=== PATIENT | female | born 1975 | race Caucasian/White ===

== ENCOUNTER 2018-10-07 14:00 | Inpatient (IN) | payer OTHER ==
[~2018-10-07] VITALS: Ht 162.6 cm; Wt 64.4 kg
[~2018-10-07 14:00] MED LIST: PNEU16DI2
[2018-10-11] MEDS ORDERED: PRENATAL TABLE1 EAC1 PO (22:52)
== END 2018-10-21 15:06 | DRG 807 ==
LOC: OB/GYN 10-19 14:25 → LDR 10-19 14:25 → OB/GYN 10-19 16:23
PROVIDERS: ADMIT Specialist
PROC: 10E0XZZ Delivery of Products of Conception, External Approach (ICD-10-PCS; principal; 2018-10-19)
PROC: 0HQ9XZZ Repair Perineum Skin, External Approach (ICD-10-PCS; 2018-10-19)
PROC: 4A1HXCZ Monitoring of Products of Conception, Cardiac Rate, External Approach (ICD-10-PCS; 2018-10-19)
DX: O70.0 First degree perineal laceration during delivery (principal); Z37.0 Single live birth; Z3A.38 38 weeks gestation of pregnancy

== ENCOUNTER 2018-10-11 19:59 | Outpatient (CLI) | payer OTHER ==
[2018-10-11] MEDS ORDERED: PRENATAL TABLE1 EAC1 PO (22:52)
== END 2018-10-12 15:38 | disposition home or self-care (01) ==
LOC: OBS/DEL 19:59
DX: O26.893 Other specified pregnancy related conditions, third trimester (principal); N89.8 Other specified noninflammatory disorders of vagina; Z34.83 Encounter for supervision of other normal pregnancy, third trimester

== ENCOUNTER 2018-10-16 03:50 | Outpatient (CLI) | payer OTHER ==
[~2018-10-16 03:50] MED LIST changes: +PRENATAL TABLE1 EAC1 PO
== END 2018-10-16 17:35 | disposition home or self-care (01) ==
LOC: OBS/DEL 03:50
DX: O26.893 Other specified pregnancy related conditions, third trimester (principal); N89.8 Other specified noninflammatory disorders of vagina; Z34.83 Encounter for supervision of other normal pregnancy, third trimester